=== PATIENT | female | born 1985 | race Caucasian/White ===

== ENCOUNTER 2019-01-13 08:59 | Emergency (ER) | payer SELFPAY ==
[~2019-01-13] VITALS: Ht 157.5 cm; Wt 61.7 kg
[2019-01-13 09:04] VITALS: Ht 157.5 cm; Wt 61.7 kg
[2019-01-13 10:50] VITALS: BP 113/59
== END 2019-01-13 10:50 | disposition home or self-care (01) ==
LOC: ED 08:59
DX: R07.89 Other chest pain (principal); M54.9 Dorsalgia, unspecified
CPT/HCPCS: J1885; Q0092

== ENCOUNTER 2019-08-30 14:42 | Emergency (ER) | payer SELFPAY | END 2019-08-30 15:00 | disposition left against medical advice (07) | LOC: ED 14:42 | DX: Z53.21 Procedure and treatment not carried out due to patient leaving prior to being seen by health care provider (principal) ==

== ENCOUNTER 2020-05-31 17:26 | Emergency (ER) | payer MEDICAID ==
[~2020-05-31] VITALS: Ht 157.5 cm; Wt 66.2 kg
[2020-05-31 17:39] VITALS: Ht 157.5 cm; Wt 66.2 kg
[2020-05-31 19:21] LABS: BASOPHIL % 0.6 % (0.2-1.3); PLATELET COUNT 291 x10^3mcL (179-408); RED CELL DISTRIBUTION WIDTH 12.4 % (12.3-17.7)
[2020-05-31 19:41] LABS: CALCIUM 9.3 mg/dL (8.5-10.1); CHLORIDE SERUM 102 mmol/L (98-107); CREATININE SERUM 0.7 mg/dL (0.6-1.0); GFR1 > 60 mL/min; GLUCOSE SERUM 95 mg/dL (74-106); POTASSIUM SERUM 3.7 mmol/L (3.5-5.1); SODIUM SERUM 138 mmol/L (136-145)
[2020-05-31 19:46] LABS: ALBUMIN 4.6 g/dL (3.4-5.0); ALKALINE PHOSPHATASE 58 U/L (46-116); ALT/SGPT 28 U/L (14-59); AST/SGOT 15 U/L (15-37); BILIRUBIN TOTAL 0.39 mg/dL (0.20-1.00); TOTAL PROTEIN, SERUM 8.3 g/dL (6.4-8.2)
[2020-05-31 20:21] VITALS: BP 141/65
== END 2020-05-31 20:21 | disposition home or self-care (01) ==
LOC: ED 17:26
PROVIDERS: Emergency Medicine
DX: H81.10 Benign paroxysmal vertigo, unspecified ear (principal); F41.9 Anxiety disorder, unspecified; R51.9 Headache, unspecified